=== PATIENT | female | born 1980 | race Caucasian/White ===

== ENCOUNTER 2017-11-22 21:30 | Emergency (ER) | payer BC ==
[~2017-11-22] VITALS: Ht 170.2 cm; Wt 94.4 kg
[~2017-11-22 21:30] MED LIST: ACETAMINOPHEN500 MG PO; PHENERGAN-CODE120 ML PO
[2017-11-22 23:14] LABS: HEMATOCRIT 36.8 % (36.0-46.0); HEMOGLOBIN 12.4 G/DL (11.9-15.5); MCH 30.8 PG (29.0-34.0); MCHC 33.7 G/DL (30.0-36.0); MCV 91.5 FL (83-99); PLATELET COUNT 355 K/uL (156-360); RBC DIS.WIDTH-CV 13.4 % (11.8-14.6); RBC DIS.WIDTH-SD 45.3 % (39-53); RED BLOOD COUNT 4.02 M/uL (3.80-5.20); WHITE BLOOD COUNT 15.4 K/uL (4.1-10.2)
[2017-11-22 23:22] LABS: CHLORIDE 106 mEq/L (99-109); POTASSIUM 3.4 mEq/L (3.7-5.4); SODIUM 141 mEq/L (136-147)
[2017-11-22 23:24] LABS: GLUCOSE 95 mg/dL (70-99)
[2017-11-22 23:27] LABS: CREATININE 0.9 mg/dL (0.6-1.3); GFR ESTIMATE (CALCULATED) > 59 mL/min/
[2017-11-22 23:28] LABS: UREA NITROGEN (BUN) 19 mg/dL (9-23)
[2017-11-23 00:01] VITALS: BP 111/56
[2017-11-23 09:40] LABS: LYME DISEASE SEROLOGY SCREEN NEGATIVE (NEGATIVE)
== END 2017-11-23 00:02 | disposition home or self-care (01) ==
LOC: EME 21:30
PROVIDERS: Emergency Medicine
DX: M25.50 Pain in unspecified joint (principal); R22.43 Localized swelling, mass and lump, lower limb, bilateral; T37.8X5A Adverse effect of other specified systemic anti-infectives and antiparasitics, initial encounter; F17.200 Nicotine dependence, unspecified, uncomplicated; Z86.69 Personal history of other diseases of the nervous system and sense organs; Z87.39 Personal history of other diseases of the musculoskeletal system and connective tissue; Z98.890 Other specified postprocedural states; Z88.2 Allergy status to sulfonamides; Z88.0 Allergy status to penicillin; Z88.1 Allergy status to other antibiotic agents
CPT/HCPCS: 80048; 83880; 85027; 86618; 99281; 99284